=== PATIENT | male | born 1950 | race American Indian/Alaskan Native ===

== ENCOUNTER 2019-02-05 10:23 | Emergency (ER) | payer MEDICARE ==
[2019-02-05 10:33] VITALS: BP 148/84; PULSE 97
--- NOTE | 2019-02-05 11:19 | EDM.PDOC ---
ED HPI GENERAL MEDICAL PROBLEM - General Chief Complaint: Abdominal Pain Stated Complaint: STOMACH IS LEAKING Time Seen by Provider: 02/05/19 10:45 Source of Information: Reports: Patient, Family History Limitations: Reports: No Limitations - History of Present Illness INITIAL COMMENTS - FREE TEXT/NARRATIVE: Higinio is a 68 year old male who presents to the ED ambulatory with family with c/o drainage from an old incision area. He has extensive GI history. Reports he saw GI in [place] yesterday. Reports he was told he needed a paracentesis, but did not have this done. He reports that over the last day he has noticed clear fluid draining from the top area of his old incision. Denies any foul smelling, yellow/green drainage. No redness or significant open area to incision. Denies any fever, chills, abdominal pain. Does have chronic nausea , vomiting, and diarrhea, but reports none today. No other emergent complaints. Onset: Today Location: Reports: Abdomen Associated Symptoms: Reports: No Other Symptoms - Related Data Allergies Allergy/AdvReac Type Severity Reaction Status Date / Time venom-honey bee Allergy Cannot Verified 02/05/19 10:30 [bee venom (honey bee)] Remember Home Meds: Home Meds Aspirin [Adult Low Dose Aspirin EC] 81 mg PO DAILY 03/21/15 [History] Hydrochlorothiazide 25 mg PO DAILY 03/21/15 [History] Insulin Aspart [NovoLOG] 40 unit SUBCUT QID 03/21/15 [History] Insulin Detemir [Levemir Flextouch] 60 unit SUBCUT BID 03/21/15 [History] Simvastatin [Zocor] 20 mg PO DAILY 03/21/15 [History] Fenofibric Acid (Choline) [Fenofibric Acid] 135 mg PO DAILY 07/03/17 [History] Ibuprofen 600 mg PO Q6HR PRN 07/03/17 [History] [place]-3 Fatty Acids [[place]-3] 1,000 g PO DAILY 07/03/17 [History] Pantoprazole Sodium 40 mg PO DAILY 07/03/17 [History] Simethicone 80 mg PO QID PRN 07/03/17 [History] metFORMIN [Glucophage] 1,000 mg PO BID 07/03/17 [History] Losartan [Cozaar] 50 mg PO DAILY 08/06/18 [History] Past Medical History HEENT History: Reports: Cataract, Impaired Vision Cardiovascular History: Reports: High Cholesterol, Hypertension Other Cardiovascular History: Essential HTN Gastrointestinal History: Reports: GERD, Other (See Below) Other Gastrointestinal History: PEG TUBE removed 2007; 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 states they also removed his spleen. 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 - Past Surgical History HEENT Surgical History: Reports: Other (See Below) Other HEENT Surgeries/Procedures: Gets steroids to eyes due to swelling GI Surgical History: Reports: Hernia, Inguinal, Other (See Below) Other GI Surgeries/Procedures: spleen part of stomach removed and and 1/2 of pancreas removed and some intestines removed due to CA. Neurological Surgical History: Reports: Other (See Below) Musculoskeletal Surgical History: Reports: Other (See Below) Other Musculoskeletal Surgeries/Procedures:: Fx leg and arm. Social & Family History - Family History Family Medical History: Noncontributory - Tobacco Use Smoking Status *Q: Never Smoker Second Hand Smoke Exposure: No - Caffeine Use Caffeine Use: Reports: Coffee ED ROS GENERAL - Review of Systems Review Of Systems: ROS reveals no pertinent complaints other than HPI. ED EXAM, GI/ABD - Physical Exam Exam: See Below Exam Limited By: No Limitations General Appearance: Alert, WD/WN, No Apparent Distress Neck: Normal Inspection, Supple, Non-Tender, Full Range of Motion Respiratory/Chest: No Respiratory Distress, Lungs Clear, Normal Breath Sounds, No Accessory Muscle Use, Chest Non-Tender Cardiovascular: Normal Peripheral Pulses, Regular Rate, Rhythm, No Edema, No Gallop, No JVD, No Murmur, No Rub GI/Abdominal Exam: Normal Bowel Sounds, Soft, Non-Tender, Other (ascites, top portion of incision has small opening which is draining clear fluid, no surrounding erythema or warmth) Psychiatric: Normal Affect, Normal Mood Skin Exam: Other (abdomen with multiple scars, midline incision draining small amount of clear fluid from top of incision). No: Erythema, Increased Warmth Course - Vital Signs Last Recorded V/S: Last Vital Signs Temp 97.9 F 02/05/19 10:31 Pulse 97 02/05/19 10:31 Resp 14 02/05/19 10:31 BP 148/84 H 02/05/19 10:31 Pulse Ox 99 02/05/19 10:31 - Orders/Labs/Meds Labs: Laboratory Tests 02/05/19 02/05/19 02/05/19 Range/Units 10:50 10:53 10:53 WBC 10.6 H (5.0-10.0) 10^3/uL RBC 4.22 L (4.50-6.00) 10^6/uL Hgb 12.7 L (14.0-18.0) g/dL Hct 38.8 L (40.0-54.0) % MCV 91.9 (82.0-94.0) fL MCH 30.1 (27.0-32.0) pg MCHC 32.7 L (33.0-38.0) g/dL RDW Coeff of Joanne 17.5 H (11.0-15.0) % Plt Count 370 (150-400) 10^3/uL Neut % (Auto) 55.9 (35-85) % Lymph % (Auto) 24.2 (10-55) % [place] % (Auto) 12.4 (0-16) % Eos % (Auto) 6.6 H (0-5) % Baso % (Auto) 0.9 (0-3) % Neut # (Auto) 5.92 (1.80-7.00) 10^3/uL Lymph # (Auto) 2.56 (1.00-4.80) 10^3/uL [place] # (Auto) 1.31 H (0.00-0.80) 10^3/uL Eos # (Auto) 0.70 H (0.00-0.45) 10^3/uL Baso # (Auto) 0.09 10^3/uL Sodium 142 (136-145) mEq/L Potassium 4.5 (3.5-5.0) mEq/L Chloride 107 H (98-106) mEq/L Carbon Dioxide 28 (21-32) mmol/L BUN 13 (7-18) mg/dL Creatinine 1.2 (0.7-1.3) mg/dL Est Cr Clr Drug Dosing 61.01 mL/min Estimated GFR (MDRD) 60 (>=60) mL/min Glucose 246 H D (75-99) mg/dL Calcium 8.4 (8.4-10.1) mg/dL Total Bilirubin 0.6 (0.0-1.0) mg/dL AST 60 H (15-37) U/L ALT 30 (12-78) U/L Alkaline Phosphatase 121 H (46-116) U/L C-Reactive Protein 1.1 H (0.2-0.8) mg/dL Total Protein 6.6 (6.4-8.2) g/dL Albumin 2.2 L (3.4-5.0) g/dL Amylase 18 L (25-115) U/L Lipase 19 L (73-393) U/L Urine Color Yellow (YELLOW) Urine Appearance Clear (CLEAR) Urine pH 5.0 (4.5-8.0) Ur Specific [place] >= 1.030 H (1.003-1.020) Urine Protein Trace H (NEGATIVE) mg/dL Urine Glucose (UA) Negative (NEGATIVE) mg/dL Urine Ketones Negative (NEGATIVE) mg/dL Urine Occult Blood Negative (NEGATIVE) Urine Nitrite Negative (NEGATIVE) Urine Bilirubin Negative (NEGATIVE) Urine Urobilinogen 0.2 (0.2-1.0) EU/dL Ur Leukocyte Esterase Negative (NEGATIVE) Urine RBC Not seen (0-5) /HPF Urine WBC 0-5 (0-5) /HPF Ur Squamous Epith Cells Few H (NOT SEEN) /HPF - Re-Assessments/Exams Free Text/Narrative Re-Assessment/Exam: Discussed with patient that area is not concerning for infection. He is apparently supposed to have paracentesis in future. Drainage is clear at this time. Labs all stable. Did have appointment with GI yesterday. Departure - Departure Time of Disposition: 11:16 Disposition: Home, Self-Care 01 Condition: Good Clinical Impression: Open abdominal incision with drainage Qualifiers: Encounter type: initial encounter Qualified Code(s): T81.31XA - Disruption of external operation (surgical) wound, not elsewhere classified, initial encounter - Discharge Information *PRESCRIPTION DRUG MONITORING PROGRAM REVIEWED*: Not Applicable *COPY OF PRESCRIPTION DRUG MONITORING REPORT IN PATIENT RUDDY: Not Applicable Referrals: Nancy Payne PA [Primary Care Provider] - Forms: ED Department Discharge Additional Instructions: - Area may continue to drain. Keep area covered with dressing. As long as drainage remains clear this is fine. - If drainage becomes foul smelling or change in color or any surrounding incisional redness follow up with PCP in clinic for recheck - Return to ED for any emergent needs
== END 2019-02-05 11:30 | disposition home or self-care (01) ==
LOC: CC.ED 10:23
DX: T81.31XA Disruption of external operation (surgical) wound, not elsewhere classified, initial encounter (principal); I10 Essential (primary) hypertension; E11.9 Type 2 diabetes mellitus without complications; K21.9 Gastro-esophageal reflux disease without esophagitis; Z79.84 Long term (current) use of oral hypoglycemic drugs; Z79.82 Long term (current) use of aspirin; Z79.899 Other long term (current) drug therapy; Z91.030 Bee allergy status
CPT/HCPCS: 36415; 80053; 81001; 82150; 83690; 85025; 86140; 99283

== ENCOUNTER 2020-07-23 12:44 | Emergency (ER) | payer MEDICARE, OTHER ==
[2020-07-23] MEDS ORDERED: Aspirin 81 MG Tab.Chew PO ONE (13:05)
[2020-07-23 13:16] LABS: CHLORIDE,CL 109 mEq/L (98-106); SODIUM,NA 143 mEq/L (136-145)
[2020-07-23 13:17] LABS: PTT,PARTIAL THROMBOPLSTIN TIME 25.2 SEC (23.2-32.3)
--- NOTE | 2020-07-23 13:33 | EDM.PDOC ---
ED HPI GENERAL MEDICAL PROBLEM - General Chief Complaint: Chest Pain Stated Complaint: CHEST PAIN Time Seen by Provider: 07/23/20 13:08 Source of Information: Reports: Patient, RN History Limitations: Reports: No Limitations - History of Present Illness INITIAL COMMENTS - FREE TEXT/NARRATIVE: Has been having chest pain on and off for the last several days. He states that it was worse during the night the last 2 nights. He denies any diaphoresis with it but did feel SOB. No cough. States that the heartburn has been really bad lately. Is on PPI but had stopped the Zantac when it was recalled. He states that when he got upright the chest pain did improve slightly. No edema. Last paracentesis was approximately a month ago. He denies any abdominal pain. He states that when he had the pain he thought he was going to from it. But he did not come into the ER for it. Location: Reports: Chest Quality: Reports: Pressure Associated Symptoms: Reports: Chest Pain, Cough. Denies: Fever/Chills Chest Pain Score (Numeric/FACES): 3 - Related Data Allergies Allergy/AdvReac Type Severity Reaction Status Date / Time venom-honey bee Allergy Cannot Verified 07/23/20 13:03 [bee venom (honey bee)] Remember Home Meds: Home Meds Aspirin [Adult Low Dose Aspirin EC] 81 mg PO DAILY 03/21/15 [History] Insulin Aspart [NovoLOG] 40 unit SUBCUT QID 03/21/15 [History] Insulin Detemir [Levemir Flextouch] 60 unit SUBCUT BID 03/21/15 [History] Simvastatin [Zocor] 20 mg PO DAILY 03/21/15 [History] Ibuprofen 600 mg PO Q6HR PRN 07/03/17 [History] [place]-3 Fatty Acids [[place]-3] 1,000 g PO DAILY 07/03/17 [History] Pantoprazole Sodium 40 mg PO DAILY 07/03/17 [History] Simethicone 80 mg PO QID PRN 07/03/17 [History] Losartan [Cozaar] 25 mg PO DAILY 08/06/18 [History] Past Medical History HEENT History: Reports: Cataract, Impaired Vision Cardiovascular History: Reports: High Cholesterol, Hypertension Other Cardiovascular History: Essential HTN Gastrointestinal History: Reports: GERD, Other (See Below) Other Gastrointestinal History: PEG TUBE removed 2007; 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 states they also removed his spleen. 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 - Past Surgical History HEENT Surgical History: Reports: Other (See Below) Other HEENT Surgeries/Procedures: Gets steroids to eyes due to swelling GI Surgical History: Reports: Hernia, Inguinal, Other (See Below) Other GI Surgeries/Procedures: spleen part of stomach removed and and 1/2 of pancreas removed and some intestines removed due to CA. Neurological Surgical History: Reports: Other (See Below) Musculoskeletal Surgical History: Reports: Other (See Below) Other Musculoskeletal Surgeries/Procedures:: Fx leg and arm. Social & Family History - Family History Family Medical History: No Pertinent Family History - Caffeine Use Caffeine Use: Reports: Coffee ED ROS GENERAL - Review of Systems Review Of Systems: See Below Constitutional: Denies: Fever, Chills, Diaphoresis HEENT: Denies: Throat Swelling Respiratory: Reports: Shortness of Breath, Cough Cardiovascular: Reports: Chest Pain. Denies: Edema GI/Abdominal: Reports: No Symptoms : Reports: No Symptoms Musculoskeletal: Reports: No Symptoms Skin: Reports: No Symptoms Neurological: Denies: Confusion, Dizziness, Headache ED EXAM, GENERAL - Physical Exam Exam: See Below Exam Limited By: No Limitations General Appearance: Alert, WD/WN, Mild Distress Ears: Normal External Exam, Normal Canal Nose: Normal Inspection Throat/Mouth: Normal Inspection, Normal Oropharynx, No Airway Compromise Head: Atraumatic, Normocephalic Neck: Normal Inspection, Supple, Non-Tender Respiratory/Chest: No Respiratory Distress, Lungs Clear, Normal Breath Sounds, Chest Non-Tender, Decreased Breath Sounds, Rhonchi, Wheezing. No: Respiratory D istress, Rales Cardiovascular: Normal Peripheral Pulses, Regular Rate, Rhythm, No Edema, Other (NO chest wall tenderness.) Back Exam: Normal Inspection Neurological: Alert, Oriented Skin Exam: Warm, Dry, Intact Course - Vital Signs Last Recorded V/S: Last Vital Signs Temp 98.5 F 07/23/20 16:15 Pulse 80 07/23/20 16:15 Resp 16 07/23/20 16:15 BP 133/69 07/23/20 16:15 Pulse Ox 97 07/23/20 16:15 - Orders/Labs/Meds Labs: Laboratory Tests 07/23/20 07/23/20 07/23/20 Range/Units 12:55 12:55 12:55 WBC 9.8 (5.0-10.0) 10^3/uL RBC 4.07 L (4.50-6.00) 10^6/uL Hgb 12.0 L (14.0-18.0) g/dL Hct 36.5 L (40.0-54.0) % MCV 89.7 (82.0-94.0) fL MCH 29.5 (27.0-32.0) pg MCHC 32.9 L (33.0-38.0) g/dL RDW Coeff of Joanne 16.3 H (11.0-15.0) % Plt Count 381 (150-400) 10^3/uL Neut % (Auto) 61.4 (35-85) % Lymph % (Auto) 22.6 (10-55) % [place] % (Auto) 12.1 (0-16) % Eos % (Auto) 3.4 (0-5) % Baso % (Auto) 0.5 (0-3) % Neut # (Auto) 6.02 (1.80-7.00) 10^3/uL Lymph # (Auto) 2.21 (1.00-4.80) 10^3/uL [place] # (Auto) 1.19 H (0.00-0.80) 10^3/uL Eos # (Auto) 0.33 (0.00-0.45) 10^3/uL Baso # (Auto) 0.05 10^3/uL PT 12.0 (9.7-12.3) SEC INR 1.11 (0.92-1.18) APTT 25.2 (23.2-32.3) SEC D-Dimer, Quantitative (0.00-0.50) Sodium 143 (136-145) mEq/L Potassium 4.5 (3.5-5.0) mEq/L Chloride 109 H (98-106) mEq/L Carbon Dioxide 23 (21-32) mmol/L BUN 19 H (7-18) mg/dL Creatinine 1.1 (0.7-1.3) mg/dL Est Cr Clr Drug Dosing 62.68 mL/min Estimated GFR (MDRD) > 60 (>=60) mL/min Glucose 274 H (75-99) mg/dL Calcium 8.4 (8.4-10.1) mg/dL Total Bilirubin 0.4 (0.0-1.0) mg/dL AST 37 (15-37) U/L ALT 30 (12-78) U/L Alkaline Phosphatase 202 H (46-116) U/L Lactate Dehydrogenase 156 (100-190) U/L Creatine Kinase 115 (35-232) U/L Troponin I 1.107 H (0.00-0.06) ng/mL Total Protein 7.2 (6.4-8.2) g/dL Albumin 2.6 L (3.4-5.0) g/dL Lipase 24 L (73-393) U/L SARS-CoV-2 RNA (EMMY) (NEGATIVE) 07/23/20 07/23/20 Range/Units 13:13 13:24 WBC (5.0-10.0) 10^3/uL RBC (4.50-6.00) 10^6/uL Hgb (14.0-18.0) g/dL Hct (40.0-54.0) % MCV (82.0-94.0) fL MCH (27.0-32.0) pg MCHC (33.0-38.0) g/dL RDW Coeff of Joanne (11.0-15.0) % Plt Count (150-400) 10^3/uL Neut % (Auto) (35-85) % Lymph % (Auto) (10-55) % [place] % (Auto) (0-16) % Eos % (Auto) (0-5) % Baso % (Auto) (0-3) % Neut # (Auto) (1.80-7.00) 10^3/uL Lymph # (Auto) (1.00-4.80) 10^3/uL [place] # (Auto) (0.00-0.80) 10^3/uL Eos # (Auto) (0.00-0.45) 10^3/uL Baso # (Auto) 10^3/uL PT (9.7-12.3) SEC INR (0.92-1.18) APTT (23.2-32.3) SEC D-Dimer, Quantitative 1.67 H (0.00-0.50) Sodium (136-145) mEq/L Potassium (3.5-5.0) mEq/L Chloride (98-106) mEq/L Carbon Dioxide (21-32) mmol/L BUN (7-18) mg/dL Creatinine (0.7-1.3) mg/dL Est Cr Clr Drug Dosing mL/min Estimated GFR (MDRD) (>=60) mL/min Glucose (75-99) mg/dL Calcium (8.4-10.1) mg/dL Total Bilirubin (0.0-1.0) mg/dL AST (15-37) U/L ALT (12-78) U/L Alkaline Phosphatase (46-116) U/L Lactate Dehydrogenase (100-190) U/L Creatine Kinase (35-232) U/L Troponin I (0.00-0.06) ng/mL Total Protein (6.4-8.2) g/dL Albumin (3.4-5.0) g/dL Lipase (73-393) U/L SARS-CoV-2 RNA (EMMY) Negative (NEGATIVE) Meds: Medications Discontinued Medications Generic Name Dose Route Start Last Admin Trade Name Freq PRN Reason Stop Dose Admin Aspirin 324 mg 07/23/20 13:05 07/23/20 13:05 Aspirin PO 07/23/20 13:06 324 mg ONETIME ONE Administration Clopidogrel Bisulfate 300 mg 07/23/20 15:16 07/23/20 15:43 Plavix PO 07/23/20 15:17 300 mg ONETIME ONE Administration Heparin Sodium (Porcine) 5,000 units 07/23/20 15:33 07/23/20 15:43 Heparin Sodium IVPUSH 07/23/20 15:34 Not Given ONETIME ONE Heparin Sodium (Porcine) 4,000 units 07/23/20 15:37 07/23/20 15:50 Heparin Sodium IVPUSH 07/23/20 15:38 4,000 units ONETIME ONE Administration Heparin Sodium/Sodium Chloride 500 mls @ 25.365 mls/hr 07/23/20 15:30 07/23/20 16:01 Heparin 25,000 Units In 1/2 Ns 500 Ml IV 12 units/kg/hr TITRATE ENOCH 25.365 mls/hr Administration Protocol 12 UNITS/KG/HR Iopamidol 100 ml 07/23/20 14:00 07/23/20 14:11 Isovue-370 (76%) IVPUSH 07/23/20 14:01 100 ml ONETIME ONE Administration Metoprolol Tartrate 5 mg 07/23/20 15:16 07/23/20 15:40 Lopressor IVPUSH 07/23/20 15:17 5 mg ONETIME ONE Administration Morphine Sulfate 4 mg 07/23/20 14:36 07/23/20 14:49 Morphine IVPUSH 07/23/20 14:37 4 mg ONETIME ONE Administration Nitroglycerin 0.4 mg 07/23/20 14:51 07/23/20 14:52 Nitrostat SL 0.4 mg Q5M PRN Administration Chest Pain Ondansetron HCl 4 mg 07/23/20 14:36 07/23/20 14:45 Zofran IVPUSH 07/23/20 14:37 4 mg NOW STA Administration Pantoprazole Sodium 80 mg 07/23/20 14:37 07/23/20 14:53 Protonix Iv IVPUSH 07/23/20 14:38 80 mg ONETIME ONE Administration - Re-Assessments/Exams Free Text/Narrative Re-Assessment/Exam: 07/23/20 1350 LAbs are resulted and reviewed with the pt. Troponin is elevated as is the D-dimer. Will do CTA chest to rule out PE. 1430- Care transferred to [facility] and report given. Departure - Departure Time of Disposition: 15:05 Disposition: DC/Tfer to Acute Hospital 02 Reason for Transfer *Q: Other Clinical Impression: Non-STEMI (non-ST elevated myocardial infarction) Referrals: PCP,None [Primary Care Provider] - Forms: ED Department Discharge Sepsis Event Note (ED) - Evaluation Sepsis Screening Result: No Definite Risk - Problem List & Annotations (1) Non-STEMI (non-ST elevated myocardial infarction) SNOMED Code(s): 66945629 Code(s): I21.4 - NON-ST ELEVATION (NSTEMI) MYOCARDIAL INFARCTION Status: Ac aris Priority: High - Problem List Review Problem List Initiated/Reviewed/Updated: Yes
[2020-07-23] MEDS ORDERED: Iopamidol 755 Mg/ML 100 ML Bottle IVPUSH ONE (14:00)
[2020-07-23] MEDS ORDERED: Ondansetron 4 MG/2 ML SDV IVPUSH STA (14:36)
[2020-07-23] MEDS ORDERED: Morphine 4 MG/ML VIAL IVPUSH ONE (14:36)
[2020-07-23] MEDS ORDERED: Pantoprazole 40 MG Vial IVPUSH ONE (14:37)
--- NOTE | 2020-07-23 14:49 | EDM.PDOC ---
ED HPI GENERAL MEDICAL PROBLEM - General Chief Complaint: Chest Pain Stated Complaint: CHEST PAIN Time Seen by Provider: 07/23/20 13:08 Source of Information: Reports: Patient, RN History Limitations: Reports: No Limitations - History of Present Illness INITIAL COMMENTS - FREE TEXT/NARRATIVE: Terese Paulson Note: Has been having chest pain on and off for the last several days. He states that it was worse during the night the last 2 nights. He denies any diaphoresis with it but did feel SOB. No cough. States that the heartburn has been really bad lately. Is on PPI but had stopped the Zantac when it was recalled. Pedro Luis Escamilla Note 1435: I have assumed care of this patient at this time. The patient reports for 4 days, but much worse the past 2 days having central chest pain and left sided chest pain. Patient reports the pain radiates up into his throat, neck, and bilateral ears. Patient describes the pain as "tightness". He reports his pain currently on my exam is 5/10. Meds have been ordered. ASA has been given. I reviewed patient labs, his troponin is elevated without renal insuff. D-Dimer also elevated. A CTA was done here in the ER. Due to patient chest pain c urrently and elevated troponin, will transfer to higher level of care with cardiology. Duration: Day(s): (4) Location: Reports: Chest Quality: Reports: Other ("tightness") Severity: Moderate Improves with: Reports: None Worsens with: Reports: Movement (laying down) Associated Symptoms: Reports: Chest Pain. Denies: Confusion, Cough, cough w sputum, Diaphoresis, Fever/Chills, Headaches, Loss of Appetite, Malaise, Nausea/ Vomiting, Rash, Seizure, Shortness of Breath, Syncope, Weakness Chest Pain Score (Numeric/FACES): 5 - Related Data Allergies Allergy/AdvReac Type Severity Reaction Status Date / Time venom-honey bee Allergy Cannot Verified 07/23/20 13:03 [bee venom (honey bee)] Remember Home Meds: Home Meds Aspirin [Adult Low Dose Aspirin EC] 81 mg PO DAILY 03/21/15 [History] Insulin Aspart [NovoLOG] 40 unit SUBCUT QID 03/21/15 [History] Insulin Detemir [Levemir Flextouch] 60 unit SUBCUT BID 03/21/15 [History] Simvastatin [Zocor] 20 mg PO DAILY 03/21/15 [History] Ibuprofen 600 mg PO Q6HR PRN 07/03/17 [History] [place]-3 Fatty Acids [Mish[place]ot-3] 1,000 g PO DAILY 07/03/17 [History] Pantoprazole Sodium 40 mg PO DAILY 07/03/17 [History] Simethicone 80 mg PO QID PRN 07/03/17 [History] Losartan [Cozaar] 25 mg PO DAILY 08/06/18 [History] Past Medical History HEENT History: Reports: Cataract, Impaired Vision Cardiovascular History: Reports: High Cholesterol, Hypertension Other Cardiovascular History: Essential HTN Gastrointestinal History: Reports: GERD, Other (See Below) Other Gastrointestinal History: PEG TUBE removed 2007; 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 states they also removed his spleen. 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 - Past Surgical History HEENT Surgical History: Reports: Other (See Below) Other HEENT Surgeries/Procedures: Gets steroids to eyes due to swelling GI Surgical History: Reports: Hernia, Inguinal, Other (See Below) Other GI Surgeries/Procedures: spleen part of stomach removed and and 1/2 of pancreas removed and some intestines removed due to CA. Neurological Surgical History: Reports: Other (See Below) Musculoskeletal Surgical History: Reports: Other (See Below) Other Musculoskeletal Surgeries/Procedures:: Fx leg and arm. Social & Family History - Family History Family Medical History: No Pertinent Family History - Tobacco Use Tobacco Use Status *Q: Never Tobacco User - Caffeine Use Caffeine Use: Reports: None - Recreational Drug Use Recreational Drug Use: No ED ROS GENERAL - Review of Systems Review Of Systems: See Below Constitutional: Reports: No Symptoms HEENT: Reports: No Symptoms Respiratory: Reports: No Symptoms. Denies: Shortness of Breath Cardiovascular: Reports: Chest Pain. Denies: Dyspnea on Exertion, Palpitations Endocrine: Reports: No Symptoms GI/Abdominal: Reports: No Symptoms. Denies: Abdominal Pain, Nausea, Vomiting : Reports: No Symptoms Musculoskeletal: Reports: No Symptoms Skin: Reports: No Symptoms Neurological: Reports: No Symptoms Psychiatric: Reports: No Symptoms Hematologic/Lymphatic: Reports: No Symptoms Immunologic: Reports: No Symptoms ED EXAM, GENERAL - Physical Exam Exam: See Below Free Text/Narrative:: Has been having chest pain on and off for the last several days. He states that it was worse during the night the last 2 nights. He denies any diaphoresis with it but did feel SOB. No cough. States that the heartburn has been really bad lately. Is on PPI but had stopped the Zantac when it was recalled. Exam Limited By: No Limitations General Appearance: Alert, WD/WN, No Apparent Distress Eye Exam: Bilateral Eye: Normal Inspection, PERRL Ears: Normal External Exam, Normal Canal, Hearing Grossly Normal, Normal TMs Ear Exam: Bilateral Ear: Auricle Normal, Canal Normal, TM normal Nose: Normal Inspection, Normal Mucosa, No Blood Throat/Mouth: Normal Inspection, Normal Lips, Normal Teeth, Normal Gums, Normal Oropharynx, Normal Voice, No Airway Compromise Head: Atraumatic, Normocephalic Neck: Normal Inspection, Supple, Non-Tender, Full Range of Motion Respiratory/Chest: No Respiratory Distress, Lungs Clear, Normal Breath Sounds, No Accessory Muscle Use, Chest Non-Tender Cardiovascular: Normal Peripheral Pulses, Regular Rate, Rhythm, No Edema, No Gallop, No JVD, No Murmur, No Rub Peripheral Pulses: 2+: Radial (L), Radial (R), Posterior Tibial (L), Posterior Tibial (R) GI/Abdominal: Normal Bowel Sounds, Soft, Non-Tender, No Organomegaly, No Distention, No Abnormal Bruit, No Mass, Pelvis Stable Back Exam: Normal Inspection, Full Range of Motion Extremities: Normal Inspection, Normal Range of Motion, Non-Tender, No Pedal Edema, Normal Capillary Refill Neurological: Alert, Oriented, Normal Cognition, No Motor/Sensory Deficits Psychiatric: Normal Affect, Normal Mood Skin Exam: Warm, Dry, Intact, Normal Color, No Rash #1 Interpretation EKG Date: 07/23/20 Time: 12:47 Rate (Beats/Min): 100 ST-T: Normal Comparison: NA - No Prior EKG Course - Vital Signs Last Recorded V/S: Last Vital Signs Temp 98.5 F 07/23/20 16:15 Pulse 80 07/23/20 16:15 Resp 16 07/23/20 16:15 BP 133/69 07/23/20 16:15 Pulse Ox 97 07/23/20 16:15 - Orders/Labs/Meds Labs: Laboratory Tests 07/23/20 07/23/20 07/23/20 Range/Units 12:55 12:55 12:55 WBC 9.8 (5.0-10.0) 10^3/uL RBC 4.07 L (4.50-6.00) 10^6/uL Hgb 12.0 L (14.0-18.0) g/dL Hct 36.5 L (40.0-54.0) % MCV 89.7 (82.0-94.0) fL MCH 29.5 (27.0-32.0) pg MCHC 32.9 L (33.0-38.0) g/dL RDW Coeff of Joanne 16.3 H (11.0-15.0) % Plt Count 381 (150-400) 10^3/uL Neut % (Auto) 61.4 (35-85) % Lymph % (Auto) 22.6 (10-55) % [place] % (Auto) 12.1 (0-16) % Eos % (Auto) 3.4 (0-5) % Baso % (Auto) 0.5 (0-3) % Neut # (Auto) 6.02 (1.80-7.00) 10^3/uL Lymph # (Auto) 2.21 (1.00-4.80) 10^3/uL [place] # (Auto) 1.19 H (0.00-0.80) 10^3/uL Eos # (Auto) 0.33 (0.00-0.45) 10^3/uL Baso # (Auto) 0.05 10^3/uL PT 12.0 (9.7-12.3) SEC INR 1.11 (0.92-1.18) APTT 25.2 (23.2-32.3) SEC D-Dimer, Quantitative (0.00-0.50) Sodium 143 (136-145) mEq/L Potassium 4.5 (3.5-5.0) mEq/L Chloride 109 H (98-106) mEq/L Carbon Dioxide 23 (21-32) mmol/L BUN 19 H (7-18) mg/dL Creatinine 1.1 (0.7-1.3) mg/dL Est Cr Clr Drug Dosing 62.68 mL/min Estimated GFR (MDRD) > 60 (>=60) mL/min Glucose 274 H (75-99) mg/dL Calcium 8.4 (8.4-10.1) mg/dL Total Bilirubin 0.4 (0.0-1.0) mg/dL AST 37 (15-37) U/L ALT 30 (12-78) U/L Alkaline Phosphatase 202 H (46-116) U/L Lactate Dehydrogenase 156 (100-190) U/L Creatine Kinase 115 (35-232) U/L Troponin I 1.107 H (0.00-0.06) ng/mL Total Protein 7.2 (6.4-8.2) g/dL Albumin 2.6 L (3.4-5.0) g/dL Lipase 24 L (73-393) U/L SARS-CoV-2 RNA (EMMY) (NEGATIVE) 07/23/20 07/23/20 Range/Units 13:13 13:24 WBC (5.0-10.0) 10^3/uL RBC (4.50-6.00) 10^6/uL Hgb (14.0-18.0) g/dL Hct (40.0-54.0) % MCV (82.0-94.0) fL MCH (27.0-32.0) pg MCHC (33.0-38.0) g/dL RDW Coeff of Joanne (11.0-15.0) % Plt Count (150-400) 10^3/uL Neut % (Auto) (35-85) % Lymph % (Auto) (10-55) % [place] % (Auto) (0-16) % Eos % (Auto) (0-5) % Baso % (Auto) (0-3) % Neut # (Auto) (1.80-7.00) 10^3/uL Lymph # (Auto) (1.00-4.80) 10^3/uL [place] # (Auto) (0.00-0.80) 10^3/uL Eos # (Auto) (0.00-0.45) 10^3/uL Baso # (Auto) 10^3/uL PT (9.7-12.3) SEC INR (0.92-1.18) APTT (23.2-32.3) SEC D-Dimer, Quantitative 1.67 H (0.00-0.50) Sodium (136-145) mEq/L Potassium (3.5-5.0) mEq/L Chloride (98-106) mEq/L Carbon Dioxide (21-32) mmol/L BUN (7-18) mg/dL Creatinine (0.7-1.3) mg/dL Est Cr Clr Drug Dosing mL/min Estimated GFR (MDRD) (>=60) mL/min Glucose (75-99) mg/dL Calcium (8.4-10.1) mg/dL Total Bilirubin (0.0-1.0) mg/dL AST (15-37) U/L ALT (12-78) U/L Alkaline Phosphatase (46-116) U/L Lactate Dehydrogenase (100-190) U/L Creatine Kinase (35-232) U/L Troponin I (0.00-0.06) ng/mL Total Protein (6.4-8.2) g/dL Albumin (3.4-5.0) g/dL Lipase (73-393) U/L SARS-CoV-2 RNA (EMMY) Negative (NEGATIVE) Meds: Medications Discontinued Medications Generic Name Dose Route Start Last Admin Trade Name Haydenq PRN Reason Stop Dose Admin Aspirin 324 mg 07/23/20 13:05 07/23/20 13:05 Aspirin PO 07/23/20 13:06 324 mg ONETIME ONE Administration Clopidogrel Bisulfate 300 mg 07/23/20 15:16 07/23/20 15:43 Plavix PO 07/23/20 15:17 300 mg ONETIME ONE Administration Heparin Sodium (Porcine) 5,000 units 07/23/20 15:33 07/23/20 15:43 Heparin Sodium IVPUSH 07/23/20 15:34 Not Given ONETIME ONE Heparin Sodium (Porcine) 4,000 units 07/23/20 15:37 07/23/20 15:50 Heparin Sodium IVPUSH 07/23/20 15:38 4,000 units ONETIME ONE Administration Heparin Sodium/Sodium Chloride 500 mls @ 25.365 mls/hr 07/23/20 15:30 07/23/20 16:01 Heparin 25,000 Units In 1/2 Ns 500 Ml IV 12 units/kg/hr TITRATE ENOCH 25.365 mls/hr Administration Protocol 12 UNITS/KG/HR Iopamidol 100 ml 07/23/20 14:00 07/23/20 14:11 Isovue-370 (76%) IVPUSH 07/23/20 14:01 100 ml ONETIME ONE Administration Metoprolol Tartrate 5 mg 07/23/20 15:16 07/23/20 15:40 Lopressor IVPUSH 07/23/20 15:17 5 mg ONETIME ONE Administration Morphine Sulfate 4 mg 07/23/20 14:36 07/23/20 14:49 Morphine IVPUSH 07/23/20 14:37 4 mg ONETIME ONE Administration Nitroglycerin 0.4 mg 07/23/20 14:51 07/23/20 14:52 Nitrostat SL 0.4 mg Q5M PRN Administration Chest Pain Ondansetron HCl 4 mg 07/23/20 14:36 07/23/20 14:45 Zofran IVPUSH 07/23/20 14:37 4 mg NOW STA Administration Pantoprazole Sodium 80 mg 07/23/20 14:37 07/23/20 14:53 Protonix Iv IVPUSH 07/23/20 14:38 80 mg ONETIME ONE Administration - Radiology Interpretation Free Text/Narrative:: CTA: No PE CXR: no acute findings CT Results Date: 07/23/20 CT Results Time: 15:38 - Re-Assessments/Exams Free Text/Narrative Re-Assessment/Exam: 07/23/20 14:45 I called [facility] and spoke to Dr. Farnsworth hospitalleila. She has requested to give patient nitro and have cardiology review the EKG. She reports she will accept the patient if does not go to the laboratory immunologist right away. Will await cardiology call back. Will page out ATLS transfer. 07/23/20 15:10 Patient reports his pain now is a 0/10. After Morphine, Protonix, Zofran, and Nitro x1 SL. Awaiting spa consultant to review EKG and call back. 07/23/20 15:15 Patient is explained all risk vs benefits of medications to be given and accepted. Aware of risks vs benefits. I spoke to Pit Shoveler at [facility], she would like heparin to be given, betablocker, and plavix 300mg. Flight was paged out due to not ATLS transfer capabilities in [place]. Also discussed risk with bleeding with meds, patient was concerned about nosebleeds he gets on occasion, but has agreed to the medication aware of risks. Departure - Departure Time of Disposition: 15:05 Disposition: DC/Tfer to Acute Hospital 02 Reason for Transfer *Q: Other Condition: Fair Clinical Impression: Non-STEMI (non-ST elevated myocardial infarction) Referrals: PCP,None [Primary Care Provider] - Forms: ED Department Discharge Sepsis Event Note (ED) - Evaluation Sepsis Screening Result: No Definite Risk - Assessment/Plan Plan: PLEASE SEE RN NOTE FOR [facility] Patient is being transferred to [facility]. Patient is explained risk vs benefits and has agreed to transfer. The risk of transfer are helicopter crash, cardiac arrest, worsening of condition, worsening of pain. The risk of staying in [place] is , worsening of condition, no higher level of care, no spa consultant. The benefits of transfer are higher level of care, spa consultant, stress test or cath if needed. The benefits of staying in [place] are close to home.
[2020-07-23] MEDS ORDERED: Nitroglycerin 0.4 MG Tab.SL SL PRN (14:51)
[2020-07-23] MEDS ORDERED: Metoprolol Tartrate 5 MG/5 ML SDV IVPUSH ONE (15:16)
[2020-07-23] MEDS ORDERED: Clopidogrel 75 MG Tab PO ONE (15:16)
[2020-07-23] MEDS ORDERED: Heparin Sodium/0.45% NaCl 500 ML IV SCH (15:30)
[2020-07-23] MEDS ORDERED: Heparin Sodium 5,000 Units/ML Vial IVPUSH ONE ×2 (15:33→15:37)
[2020-07-23 16:16] VITALS: BP 133/69; PULSE 80
== END 2020-07-23 16:28 ==
LOC: CC.ED 12:44
DX: I21.4 Non-ST elevation (NSTEMI) myocardial infarction (principal); E11.9 Type 2 diabetes mellitus without complications; E78.00 Pure hypercholesterolemia, unspecified; I10 Essential (primary) hypertension; K21.9 Gastro-esophageal reflux disease without esophagitis; Z20.822 Contact with and (suspected) exposure to COVID-19; Z91.030 Bee allergy status; Z79.82 Long term (current) use of aspirin; Z79.4 Long term (current) use of insulin; Z79.899 Other long term (current) drug therapy
CPT/HCPCS: 36415; 71046; 71275; 80053; 82550; 83615; 83690; 84484; 85025; 85379; 85610; 85730; 93005; 93010; 96365; 96375; 99284; 99285-25; A9270-GY; C9113; J1644; J2270; J2405; J3490; Q9967; U0002

== ENCOUNTER 2020-08-01 17:55 | Emergency (ER) | payer MEDICARE, OTHER ==
[2020-08-01] MEDS ORDERED: Ondansetron 4 MG/2 ML SDV IVPUSH PRN (18:07)
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
[2020-08-01] MEDS ORDERED: Iopamidol 755 Mg/ML 100 ML Bottle IVPUSH ONE (18:33)
[2020-08-01] MEDS ORDERED: Sodium Chloride 0.9% 1,000 ML IV SCH (18:45)
[2020-08-01] MEDS ORDERED: Pantoprazole 40 MG Vial IVPUSH ONE (19:00)
[2020-08-01 19:51] VITALS: PULSE 91
[2020-08-01 20:12] VITALS: BP 115/68
== END 2020-08-01 20:19 ==
LOC: CC.ED 17:55
DX: K92.2 Gastrointestinal hemorrhage, unspecified (principal); E78.00 Pure hypercholesterolemia, unspecified; I10 Essential (primary) hypertension; K21.9 Gastro-esophageal reflux disease without esophagitis; E11.9 Type 2 diabetes mellitus without complications; Z79.4 Long term (current) use of insulin; Z79.82 Long term (current) use of aspirin; Z79.899 Other long term (current) drug therapy; Z91.030 Bee allergy status; Z95.1 Presence of aortocoronary bypass graft
CPT/HCPCS: 36415; 36430; 71260; 74177; 80053; 85025; 85610; 85730; 86140; 86850; 86900; 86901; 86920; 86922; 93005; 93010; 96374; 96375; 99284; 99285; C9113; J2405; J7030; P9016; Q9967

== ENCOUNTER 2021-01-24 09:02 | Inpatient (IN) | payer MEDICARE, SELFPAY ==
[2021-01-24 09:31] LABS: CHLORIDE,CL 104 mEq/L (98-106); SODIUM,NA 141 mEq/L (136-145)
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
[2021-01-24] MEDS ORDERED: Iopamidol 755 Mg/ML 100 ML Bottle IVPUSH ONE (10:32)
[2021-01-24] MEDS ORDERED: Sodium Chloride 0.9% 10 ML Syringe FLUSH PRN (12:31)
[2021-01-24] MEDS ORDERED: Ondansetron 4 MG/2 ML SDV IV PRN (12:31)
[2021-01-24] MEDS: Enoxaparin 40 MG/0.4 ML Syringe SUBCUT SCH (12:58)
[2021-01-24] MEDS: Pantoprazole 40 MG Vial IVPUSH SCH (12:59)
[2021-01-24] MEDS: cefTRIAXone 1 GM Vial IVPUSH SCH (12:59)
[2021-01-24] MEDS: Sodium Chloride 0.9% 1,000 ML IV SCH ×2 (12:59→22:39)
[2021-01-24] MEDS ORDERED: Acetaminophen/HYDROcodone 325-5 MG Tab PO PRN (14:08)
[2021-01-24] MEDS: Insulin Lispro 100 Units/ML 3 ML Vial SUBCUT SCH (18:23)
[2021-01-24] MEDS ORDERED: Metoprolol Tartrate 25 MG Tab PO SCH (20:00)
[2021-01-24] MEDS: Insulin Glarg,Human.Rec.Analog 100 Unit/ML SUBCUT SCH (20:24)
[2021-01-25 07:34] LABS: CHLORIDE,CL 109 mEq/L (98-106); SODIUM,NA 142 mEq/L (136-145)
[2021-01-25] MEDS: Furosemide 20 MG Tab PO SCH (07:49)
[2021-01-25] MEDS: Losartan 25 MG Tab PO SCH (07:49)
[2021-01-25] MEDS: Aspirin 81 MG Tab.EC PO SCH (07:49)
[2021-01-25] MEDS: Simvastatin 20 MG Tab PO SCH (07:49)
[2021-01-25] MEDS: Insulin Lispro 100 Units/ML 3 ML Vial SUBCUT SCH ×4 (07:53→20:12)
[2021-01-25] MEDS ORDERED: Amiodarone 200 MG Tab PO SCH (08:00)
[2021-01-25] MEDS: Insulin Glarg,Human.Rec.Analog 100 Unit/ML SUBCUT SCH (08:31)
[2021-01-25] MEDS: Sodium Chloride 0.9% 1,000 ML IV SCH ×2 (08:45→18:45)
[2021-01-25] MEDS ORDERED: 50% Dextrose in Water 50 ML Syringe IVPUSH PRN (08:55)
[2021-01-25] MEDS ORDERED: Glucagon,Human Recombinant 1 MG Vial IM PRN (08:55)
--- NOTE | 2021-01-25 11:37 | PN ---
DATE: 01/25/2021 S: Mr. Mera is a 70-year-old male admitted by Elisha for nausea and vomiting and apparently a partial small bowel obstruction. This gentleman is reasonably well known to me. He has a history of liver failure and used to do a paracentesis on him. He has a history of a prior Whipple as well due to a pancreatic CA. Since he has been admitted, he feels much better. In fact, this morning, he says he is hungry and wants to eat. He has not had any stool yet, but he has been passing gas. He has been n.p.o. No NG has been placed. He has basically been afebrile since the time of admission. O: GENERAL: He is a pleasant male in no distress. HEENT: Grossly benign. NECK: Veins are flat. LUNGS: Sounds appear to be clear. CARDIAC: Tones are regular. ABDOMEN: Flat and soft. Bowel sounds are present, albeit a little hypoactive. ASSESSMENT: 1. PARTIAL SMALL BOWEL OBSTRUCTION, IMPROVING. 2. POSSIBLE URINARY TRACT INFECTION. 3. HISTORY OF CIRRHOSIS. 4. HISTORY OF CHOLECYSTITIS. 5. TYPE 2 DIABETES, REQUIRING INSULIN. 6. HYPERLIPIDEMIA. P: We will allow the patient to have clear liquids. His abdominal exam is completely benign, and I suspect he will tolerate this just fine. He might be a good candidate, and I did put him on lactulose to help with some of his chronic constipation. He was started on Rocephin for UTI. His urine is questionable, fortunately he is still having, and I will get a culture. He is on quite a bit of insulin, and he has not been eating. We will hold his insulin and give him sliding scale at this point. DIONY/MODL /[id number]
[2021-01-25] MEDS: Pantoprazole 40 MG Vial IVPUSH SCH (14:36)
[2021-01-25] MEDS: Enoxaparin 40 MG/0.4 ML Syringe SUBCUT SCH (14:36)
[2021-01-25] MEDS: cefTRIAXone 1 GM Vial IVPUSH SCH (14:36)
[2021-01-26] MEDS: Sodium Chloride 0.9% 1,000 ML IV SCH (04:43)
[2021-01-26 04:53] VITALS: PULSE 91
[2021-01-26] MEDS: Furosemide 20 MG Tab PO SCH (07:46)
[2021-01-26] MEDS: Insulin Lispro 100 Units/ML 3 ML Vial SUBCUT SCH (07:47)
[2021-01-26] MEDS: Simvastatin 20 MG Tab PO SCH (07:47)
[2021-01-26] MEDS: Losartan 25 MG Tab PO SCH (07:47)
[2021-01-26] MEDS: Aspirin 81 MG Tab.EC PO SCH (07:47)
[2021-01-26 07:51] VITALS: BP 146/88
[2021-01-26 08:26] LABS: CHLORIDE,CL 105 mEq/L (98-106); SODIUM,NA 140 mEq/L (136-145)
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
== END 2021-01-26 10:20 | disposition home or self-care (01) | DRG 390 ==
LOC: CC.ED 09:02 → CC.MS 11:40 → UNDOADMIN 11:40 → CC.MS 12:07
PROVIDERS: ADMIT Family Medicine; ATTEND Family Medicine
DX: K56.609 Unspecified intestinal obstruction, unspecified as to partial versus complete obstruction (principal); K56.600 Partial intestinal obstruction, unspecified as to cause; K74.60 Unspecified cirrhosis of liver; K80.20 Calculus of gallbladder without cholecystitis without obstruction; H54.7 Unspecified visual loss; E78.00 Pure hypercholesterolemia, unspecified; I10 Essential (primary) hypertension; E78.5 Hyperlipidemia, unspecified; K21.9 Gastro-esophageal reflux disease without esophagitis; G89.29 Other chronic pain; M54.9 Dorsalgia, unspecified; F41.9 Anxiety disorder, unspecified; F32.9 Major depressive disorder, single episode, unspecified; E11.9 Type 2 diabetes mellitus without complications; Z85.07 Personal history of malignant neoplasm of pancreas; Z85.038 Personal history of other malignant neoplasm of large intestine; Z95.1 Presence of aortocoronary bypass graft; Z79.82 Long term (current) use of aspirin; I25.2 Old myocardial infarction; Z79.4 Long term (current) use of insulin; Z79.899 Other long term (current) drug therapy; Z91.030 Bee allergy status
CPT/HCPCS: 36415; 74019; 74177; 80053; 81001; 82150; 82947; 83690; 85025; 86140; 87086; 99285-25; A9270-GY; C9113; J0696; J1650; J1815-GY; J7030; Q9967

== ENCOUNTER 2022-08-30 19:09 | Emergency (ER) | payer MEDICARE, OTHER, SELFPAY ==
[2022-08-30 19:16] VITALS: BP 141/75; PULSE 92
[2022-08-30] MEDS: Take Home: Acetaminophen/HYDROcodone 325-5 MG, 2 Tab Pack PO ONE (20:37)
== END 2022-08-30 20:30 | disposition home or self-care (01) ==
LOC: CC.ED 19:09
DX: S20.214A Contusion of middle front wall of thorax, initial encounter (principal); I10 Essential (primary) hypertension; E78.00 Pure hypercholesterolemia, unspecified; K21.9 Gastro-esophageal reflux disease without esophagitis; I25.2 Old myocardial infarction; E11.9 Type 2 diabetes mellitus without complications; Z91.030 Bee allergy status; Z79.82 Long term (current) use of aspirin; Z79.4 Long term (current) use of insulin; Z79.899 Other long term (current) drug therapy; W01.0XXA Fall on same level from slipping, tripping and stumbling without subsequent striking against object, initial encounter
CPT/HCPCS: 36415; 70450; 71046; 72125; 80053; 83735; 84484; 85025; 93010; 99284; 99285; A9270-GY